=== PATIENT | male | born 2000 | race Caucasian/White ===

== ENCOUNTER 2019-03-16 15:30 | Emergency (ER) | payer SELFPAY ==
[~2019-03-16] VITALS: Ht 170.2 cm; Wt 73.5 kg
[2019-03-16 16:27] LABS: BASOPHILS % (AUTO) 0.4 % (0.0-2.0); EOSINOPHILS % (AUTO) 2.6 % (0.0-6.0); HEMATOCRIT 45 % (39-51); HEMOGLOBIN 15.5 g/dL (13.5-17.5); LYMPHOCYTES # (AUTO) 1.2 /CMM (0.8-4.8); LYMPHOCYTES % (AUTO) 18.3 % (20.0-44.0); MEAN CORPUSCULAR HGB CONC 34 g/dl (31.0-36.0); MEAN CORPUSCULAR VOLUME 87 fL (80-96); MONOCYTES # (AUTO) 0.4 /CMM (0.1-1.30); MONOCYTES % (AUTO) 6.5 % (2.0-12.0); NEUTROPHILS # (AUTO) 4.5 /CMM (1.8-8.9); NEUTROPHILS % (AUTO) 72.2 % (43.0-81.0); PLATELET COUNT (AUTO) 239 /CMM (150-450); RED BLOOD CELL COUNT(AUTO) 5.21 MIL/uL (4.5-6.0); WHITE BLOOD COUNT (AUTO) 6.3 K/uL (4.3-11.0)
[2019-03-16] MEDS ORDERED: ACETAMINOPHEN ES 500 MG TABLET PO ONE (16:30)
[2019-03-16] MEDS ORDERED: IBUPROFEN 600 MG TABLET PO ONE ×2 (16:30→16:33)
[2019-03-16] MEDS ORDERED: ACETAMINOPHEN ES 500 MG TABLET ONE (16:33)
[2019-03-16] MEDS ORDERED: CT SWABBABLE VALVE TRANS SET 1 EA INFUS.SET MC ONE (16:34)
[2019-03-16] MEDS ORDERED: IOHEXOL-300 100 ML VIAL IV ONE (16:34)
[2019-03-16 16:36] LABS: CALCIUM, SERUM 8.7 mg/dL (8.5-10.1); POTASSIUM 3.9 mmol/L (3.5-5.1)
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
[2019-03-16 16:42] LABS: BILIRUBIN,TOTAL 0.5 mg/dL (0.2-1.0); TOTAL PROTEIN, SERUM 7.1 g/dL (6.4-8.2)
--- NOTE | 2019-03-16 18:48 | NUR ---
Patient discharged to home in stable condition. Written and verbal after care instructions given. Patient verbalizes understanding of instruction. IV removed. Catheter intact and site benign. Pressure and 4x4 applied to site. No bleeding noted.
[2019-03-16 18:49] VITALS: BP 110/68
== END 2019-03-16 18:50 | disposition home or self-care (01) ==
LOC: ER 15:34
DX: S50.12XA Contusion of left forearm, initial encounter (principal); S00.212A Abrasion of left eyelid and periocular area, initial encounter; S00.31XA Abrasion of nose, initial encounter; R10.31 Right lower quadrant pain; M54.6 Pain in thoracic spine; V49.59XA Passenger injured in collision with other motor vehicles in traffic accident, initial encounter; Y93.89 Activity, other specified; Y92.413 State road as the place of occurrence of the external cause; Y99.8 Other external cause status
CPT/HCPCS: 36415; 70160; 70450; 71045; 74177; 80048; 80076; 85025; 85730; 99284; L0172; Q9967